=== PATIENT | male | born 2005 | race Caucasian/White ===

== ENCOUNTER 2024-01-23 14:50 | Inpatient (IN) ==
--- NOTE | 2024-01-23 15:18 | Emergency Department Note ---
Impression & Plan Compartment syndrome of left lower extremity ED Provider Note CHIEF COMPLAINT: Leg pain HISTORY OF PRESENT ILLNESS: This 18-year-old male patient presents to the emergency department via private vehicle with team physician for evaluation of possible compartment syndrome of the left lower extremity. 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 He reports swelling in the posterior aspect of the leg immediately which had worsening since that time. He was attempting RICE with no improvement. Today, noted the leg was cool in temperature with difficulty finding distal pulses. REVIEW OF SYSTEMS: A review of systems was performed with positives and pertinent negatives listed in the history of present illness. All other systems were reviewed and are negative. ALLERGIES: See below MEDICATIONS: See below PMH: See below PHYSICAL EXAM: VITALS: Vitals are noted on the nurse's note and reviewed by myself. Vital signs stable. GENERAL: 18-year-old male, in no acute distress, nondiaphoretic, well-developed well-nourished. SKIN: Slight edema of the left calf, no ecchymosis, or erythema. HEAD: Normocephalic atraumatic. MUSCULOSKELETAL: ROM left knee attempted, however, painful. Increase in circumference of LLE, calf compared to right. Sensation intact, DP pulse not able to be assessed. NEURO: Patient was alert and oriented to person place and time. No focal neurological deficits. MEDICAL DECISION MAKING: The patient is a pleasant 18-year-old male who arrives to the emergency department for evaluation of the above-stated complaint. The patient did arrive with the team physician, Dr. Cannon, who was concerned for compartment syndrome. The team physician evaluated the patient, and requested immediate ultrasound imaging to be obtained, venous and arterial. Doppler was attempted of the DP, which was unsuccessful. The patient was consented by Dr. Cannon and transferred to the OR prior to US imaging report for treatment of compartment syndrome. Please refer to Dr. Cannon's documentation for further patient workup and care. DIFFERENTIAL DIAGNOSIS: Fracture, subluxation, dislocation, contusion, ligamentous injury, neurovascular, compartment syndrome, rhabdomyolysis, as well as other pathologies. The chart was completed utilizing [employer] voice recognition software. Grammatical errors, random word insertions, pronoun errors, and incomplete sentences are an occasional consequence of this system due to software limitations, ambient noise, and hardware issues. Any formal questions or concerns about the content, text, or information contained within the body of this dictation should be directly addressed to the physician for clarification. Past Med/Surg History Problem List (Updated 01/31/24 @ 17:52 by AXEL Chapa) Wound of left leg Compartment syndrome of left lower extremity (Acute) Encounter for pre-operative examination No pertinent family history Left leg swelling Medical History No pertinent past medical history Surgical History Status post open reduction and internal fixation (ORIF) of fracture Left Tibial Plateau Family History Other No pertinent family history No pertinent past medical history Social History Smoking Status: Never smoker Hx Alcohol Use: No Hx Substance Use: No Preferred Language: Greek Communication Ability: Effective Enrollment Services Dean Required: No Beliefs That Will Affect Care: None Current Living Situation: Other Current Living Situation Comment: Off campus housing Feels Safe at Home: Yes Assistive Devices: None Allergies Allergies Allergy/AdvReac Type Severity Reaction Status Date / Time venom-honey bee Allergy Unknown Unknown Verified 01/28/24 12:30 Home Meds Previous Rx's Medication Instructions Recorded acetaminophen 500 mg tablet 1,000 mg (2 x 500 mg) PO Q8H PRN 01/28/24 (Tylenol Extra Strength) fever or pain #30 tabs ascorbic acid (vitamin C) 500 mg 500 mg PO BIDM 14 days #28 tabs 01/28/24 tablet (Vitamin C) cephalexin 500 mg capsule 500 mg PO TID #9 caps 01/28/24 ferrous gluconate 324 mg (38 mg 324 mg PO BIDM 14 days #28 tabs 01/28/24 iron) tablet multivitamin with folic acid 400 1 tab PO QAM #30 tabs 01/28/24 mcg tablet (Daily-Felipa (with folic acid)) tramadol 50 mg tablet 50 - 100 mg (1 - 2 x 50 mg) PO Q4H 01/28/24 PRN pain #18 tabs Results & Data (ED) Vital Signs Vital Signs - 24 hr 01/23/24 14:53 Temperature 36.9 C Temperature Source Temporal Artery Scan Pulse Rate 105 H Respiratory Rate 16 Respiratory Effort / Characteristics Non-Labored Spontaneous Respiratory Depth Normal Blood Pressure 138/74 Blood Pressure Mean 95 Blood Pressure Position Sitting Pulse Oximetry 99 Oxygen Delivery Method Room Air Sepsis Recent Fever Within 48 Hours No Sepsis New/Unexplained Change in Mental Status N/A Sepsis Action Taken by Nursing No Action Required Laboratory Data 01/24/24 06:32 01/24/24 06:32 Lab Results 01/23/24 Range/Units 16:40 WBC 10.64 (4.8-10.8) K/ul RBC 4.87 (4.70-6.10) M/uL Hgb 14.7 (14.0-18.0) g/dl Hct 42.5 (42.0-52.0) % MCV 87.3 (80.0-100.0) fL MCH 30.2 (25.0-34.0) pg MCHC 34.6 (32.0-36.0) g/dL RDW Std Deviation 40.1 (36.4-46.3) fL RDW Coeff of Mercedes 12.6 (11.5-14.5) % Plt Count 269 (130-400) K/uL MPV 9.6 (9.4-12.4) fL Immature Gran % (Auto) 0.3 % Neut % (Auto) 65.4 % Lymph % (Auto) 17.0 % [place] % (Auto) 13.3 % Eos % (Auto) 3.4 % Baso % (Auto) 0.6 % Neut # (Auto) 6.97 H (1.40-6.50) K/uL Lymph # (Auto) 1.81 (1.20-3.40) K/uL Independence # (Auto) 1.41 H (0.11-0.59) K/uL Eos # (Auto) 0.36 (0.00-0.50) K/uL Baso # (Auto) 0.06 (0.00-0.20) K/uL Immature Gran # (Auto) 0.03 (0.01-0.20) K/uL Sodium 138 (136-145) mmol/L Potassium 3.6 (3.5-5.1) mmol/L Chloride 103 (98-107) mmol/L Carbon Dioxide 30 (21-32) mmol/L Anion Gap 5 (3-11) BUN 16 (6-23) mg/dl Creatinine 0.86 (0.6-1.4) mg/dl Est Cr Clr Drug Dosing 124.7 ml/min eGFR 127.92 BUN/Creatinine Ratio 18.6 (10-20) Glucose 79 (70-99(Fasting)) mg/dl Calcium 9.4 (8.6-10.3) mg/dl Total Bilirubin 1.0 (0.2-1.0) mg/dl AST 21 (13-39) U/L ALT 19 (7-52) U/L Alkaline Phosphatase 111 H (34-104) U/L Total Creatine Kinase 230 H (30-223) U/L Myoglobin 24 L (28-72) ng/mL Total Protein 8.0 (6.0-8.3) gm/dl Albumin 4.9 (3.4-5.0) gm/dl Globulin 3.1 (2.5-4.0) gm/dl Albumin/Globulin Ratio 1.6 (0.9-2) Administered Medications Discontinued Medications Acetaminophen (Acetaminophen 500 Mg Tab) 1,000 mg PO Q8H PRN PRN Reason: Pain Stop: 02/22/24 20:01 Last Admin: 01/27/24 11:08 Dose: 1,000 mg Documented By: Admin: 01/27/24 00:20 Dose: 1,000 mg Documented By: Admin: 01/25/24 21:49 Dose: 1,000 mg Documented By: Admin: 01/25/24 10:50 Dose: 1,000 mg Documented By: Admin: 01/24/24 17:56 Dose: 1,000 mg Documented By: DANTE Ascorbic Acid (Ascorbic Acid 500 Mg Tab) 500 mg PO BIDM KENDRICK Stop: 02/06/24 07:59 Last Admin: 01/29/24 08:19 Dose: 500 mg Documented By: Admin: 01/28/24 18:03 Dose: 500 mg Documented By: [facility] Admin: 01/28/24 08:59 Dose: 500 mg Documented By: [facility] Admin: 01/27/24 17:54 Dose: 500 mg Documented By: [facility] Admin: 01/27/24 08:46 Dose: 500 mg Documented By: [facility] Admin: 01/26/24 17:39 Dose: 500 mg Documented By: MIGUEL ANGEL Admin: 01/26/24 13:57 Dose: 500 mg Documented By: Admin: 01/25/24 18:00 Dose: 500 mg Documented By: Admin: 01/25/24 07:58 Dose: 500 mg Documented By: Admin: 01/24/24 17:54 Dose: 500 mg Documented By: Admin: 01/24/24 08:28 Dose: 500 mg Documented By: DANTE Bupivacaine HCl (Bupivacaine 0.5 % 5 Mg/1 Ml Mpf 30ml Vial) Confirm Administered Dose 30 ml .ROUTE .STK-MED ONE Stop: 01/23/24 16:42 Last Admin: 01/23/24 17:45 Dose: 20 ml Documented By: SAMANTHA Bupivacaine HCl (Bupivacaine 0.5 % 5 Mg/1 Ml Mpf 30ml Vial) Confirm Administered Dose 30 ml .ROUTE .STK-MED ONE Stop: 01/26/24 08:37 Last Admin: 01/26/24 09:30 Dose: 16.5 ml Documented By: SAMANTHA Bupivacaine HCl/Epinephrine Bitart (Bupivacaine/Epinephrine 0.25% 1:200,000 30 Ml Vial) Confirm Administered Dose 30 ml .ROUTE .STK-MED ONE Stop: 01/28/24 13:53 Last Admin: 01/28/24 15:05 Dose: 9 ml Documented By: SAMANTHA Celecoxib (Celecoxib 100 Mg Cap) 100 mg PO BID [facility] Stop: 02/07/24 08:59 Last Admin: 01/29/24 08:19 Dose: 100 mg Documented By: Admin: 01/28/24 19:58 Dose: 100 mg Documented By: Admin: 01/28/24 08:59 Dose: 100 mg Documented By: Admin: 01/27/24 21:17 Dose: 100 mg Documented By: Admin: 01/27/24 08:45 Dose: 100 mg Documented By: MIGUEL ANGEL Admin: 01/26/24 20:07 Dose: 100 mg Documented By: Admin: 01/26/24 13:58 Dose: 100 mg Documented By: Admin: 01/25/24 19:55 Dose: 100 mg Documented By: Admin: 01/25/24 07:57 Dose: 100 mg Documented By: Admin: 01/24/24 20:53 Dose: 100 mg Documented By: Admin: 01/24/24 08:28 Dose: 100 mg Documented By: DANTE Docusate Sodium (Docusate Sodium 100 Mg Cap) 100 mg PO BID [facility] Stop: 02/22/24 20:59 Last Admin: 01/29/24 08:19 Dose: 100 mg Documented By: Admin: 01/28/24 19:58 Dose: 100 mg Documented By: Admin: 01/28/24 09:15 Dose: 100 mg Documented By: [facility] Admin: 01/27/24 21:17 Dose: 100 mg Documented By: Admin: 01/27/24 08:50 Dose: 100 mg Documented By: [facility] Admin: 01/26/24 20:07 Dose: Not Given Documented By: [facility] Admin: 01/26/24 13:59 Dose: 100 mg Documented By: [facility] Admin: 01/25/24 19:55 Dose: Not Given Documented By: [facility] Admin: 01/25/24 07:58 Dose: Not Given Documented By: Admin: 01/24/24 20:53 Dose: Not Given Documented By: [facility] Admin: 01/24/24 08:28 Dose: 100 mg Documented By: Admin: 01/23/24 22:20 Dose: 100 mg Documented By: COLIN Fentanyl Citrate (Fentanyl Citrate Pf 100 Mcg/2 Ml Vial) 25 mcg IV Q5M PRN PRN Reason: PACU Use Only-Pain Stop: 01/26/24 16:14 Last Admin: 01/26/24 11:10 Dose: 25 mcg Documented By: [facility] Ferrous Gluconate (Ferrous Gluconate 324 Mg Tab) 324 mg PO BIDM [facility] Stop: 02/06/24 07:59 Last Admin: 01/29/24 08:19 Dose: 324 mg Documented By: Admin: 01/28/24 18:03 Dose: 324 mg Documented By: [facility] Admin: 01/28/24 08:59 Dose: 324 mg Documented By: [facility] Admin: 01/27/24 17:55 Dose: 324 mg Documented By: [facility] Admin: 01/27/24 08:46 Dose: 324 mg Documented By: [facility] Admin: 01/26/24 17:39 Dose: 324 mg Documented By: [facility] Admin: 01/26/24 13:57 Dose: 324 mg Documented By: [facility] Admin: 01/25/24 18:00 Dose: 324 mg Documented By: Admin: 01/25/24 07:57 Dose: 324 mg Documented By: Admin: 01/24/24 17:54 Dose: 324 mg Documented By: Admin: 01/24/24 08:28 Dose: 324 mg Documented By: DANTE Sodium Chloride (Nss) 1,000 mls @ 999 mls/hr IV .Q1H1M ONE Stop: 01/23/24 16:57 Last Infusion: 01/23/24 22:06 Dose: Infused Documented By: Admin: 01/23/24 16:42 Dose: 999 mls/hr Documented By: PABLO Cefazolin Sodium (Ancef 2000mg) 2,000 mg in 15 mls @ 3.75 mls/min IV PREOP ONE; Protocol Stop: 01/23/24 15:55 Last Admin: 01/23/24 17:26 Dose: 3.75 mls/min Documented By: KEELY Cefazolin Sodium (Ancef 2000mg) 2,000 mg in 15 mls @ 3.75 mls/min IV Q8H KENDRICK; Protocol Stop: 01/25/24 10:03 Last Admin: 01/25/24 11:25 Dose: 3.75 mls/min Documented By: Admin: 01/25/24 01:44 Dose: 3.75 mls/min Documented By: Admin: 01/24/24 17:54 Dose: 3.75 mls/min Documented By: Admin: 01/24/24 10:53 Dose: 3.75 mls/min Documented By: Admin: 01/24/24 02:50 Dose: 3.75 mls/min Documented By: COLIN Tranexamic Acid (Tranexamic Acid / 0.7% Nacl) 1,000 mg in 100 mls @ 600 mls/hr IV NOW STA Stop: 01/24/24 12:10 Last Infusion: 01/24/24 13:28 Dose: Infused Documented By: Admin: 01/24/24 13:16 Dose: 600 mls/hr Documented By: DANTE Cefazolin Sodium (Ancef 2000mg) 2,000 mg in 15 mls @ 3.75 mls/min IV PREOP KENDRICK; Protocol Stop: 01/26/24 18:00 Last Admin: 01/26/24 08:54 Dose: 3.75 mls/min Documented By: YOGI Sodium Chloride (Nss) 1,000 mls @ 0 mls/hr IV .Q0M [facility] Stop: 01/27/24 08:14 Last Infusion: 01/26/24 14:32 Dose: Infused Documented By: Admin: 01/26/24 08:23 Dose: 15 mls/hr Documented By: TDM Cefazolin Sodium (Ancef 1000mg) 1,000 mg in 7.5 mls @ 3.75 mls/min IV Q8H [facility]; Protocol Stop: 01/28/24 16:59 Last Admin: 01/28/24 09:15 Dose: 3.75 mls/min Documented By: [facility] Admin: 01/28/24 00:53 Dose: 3.75 mls/min Documented By: Admin: 01/27/24 17:54 Dose: 3.75 mls/min Documented By: [facility] Admin: 01/27/24 08:51 Dose: 3.75 mls/min Documented By: [facility] Admin: 01/27/24 00:20 Dose: 3.75 mls/min Documented By: [facility] Admin: 01/26/24 17:39 Dose: 3.75 mls/min Documented By: [facility] Lidocaine HCl (Lidocaine 1% Local 20 Ml Vial) Confirm Administered Dose 20 ml .ROUTE .STK-MED ONE Stop: 01/28/24 13:54 Last Admin: 01/28/24 15:06 Dose: 9 ml Documented By: SAMANTHA Lidocaine/Epinephrine (Lidocaine 1%/Epinephrine 1:100,000 50 Ml Vial) Confirm Administered Dose 50 ml .ROUTE .STK-MED ONE Stop: 01/23/24 16:43 Last Admin: 01/23/24 17:45 Dose: 20 ml Documented By: SAMANTHA Lidocaine/Epinephrine (Lidocaine 1%/Epinephrine 1:100,000 50 Ml Vial) Confirm Administered Dose 20 ml .ROUTE .STK-MED ONE Stop: 01/26/24 08:37 Last Admin: 01/26/24 09:30 Dose: 16.5 ml Documented By: SAMANTHA Multivitamins (Multivitamin Tab) 1 tab PO QAM [facility] Stop: 02/23/24 08:59 Last Admin: 01/29/24 08:19 Dose: 1 tab Documented By: Admin: 01/28/24 08:59 Dose: 1 tab Documented By: MIGUEL ANGEL Admin: 01/27/24 08:45 Dose: 1 tab Documented By: MIGUEL ANGEL Admin: 01/26/24 13:58 Dose: 1 tab Documented By: MIGUEL ANGEL Admin: 01/25/24 07:57 Dose: 1 tab Documented By: Admin: 01/24/24 08:28 Dose: 1 tab Documented By: DANTE Sennosides (Senna 8.6 Mg Tab) 17.2 mg PO HS KENDRICK Stop: 02/22/24 20:59 Last Admin: 01/28/24 19:59 Dose: Not Given Documented By: Admin: 01/27/24 21:17 Dose: 17.2 mg Documented By: Admin: 01/26/24 20:07 Dose: Not Given Documented By: Admin: 01/25/24 19:55 Dose: Not Given Documented By: Admin: 01/24/24 20:53 Dose: Not Given Documented By: Admin: 01/23/24 22:19 Dose: 17.2 mg Documented By: COLIN Tramadol HCl (Tramadol Hcl 50 Mg Tablet) 50 - 100 mg PO Q4H PRN PRN Reason: Pain & Pre PT Stop: 02/22/24 19:53 Last Admin: 01/29/24 09:50 Dose: 50 mg Documented By: Admin: 01/27/24 14:20 Dose: 50 mg Documented By: Admin: 01/27/24 01:23 Dose: 50 mg Documented By: Admin: 01/26/24 14:47 Dose: 50 mg Documented By: MIGUEL ANGEL Admin: 01/24/24 08:28 Dose: 50 mg Documented By: Admin: 01/23/24 22:08 Dose: 50 mg Documented By: ROSEANN Discharge Plan Visit Data Chief Complaint: Leg Injury/Pain Stated Complaint: L LEG INJURY ED Provider: Reyes Jimenez ED Midlevel Provider: Laura Suarez Discharge Problem: Compartment syndrome of left lower extremity Patient Disposition: Admitted As Inpatient Condition: Good Discharge Instructions Interventions: ED Discharge Assessment Last Done: 01/23/24 16:50 Discharge Problem: Compartment syndrome of left lower extremity Qualifiers: Encounter type: initial encounter Qualified Code(s): T79.A22A - Traumatic compartment syndrome of left lower extremity, initial encounter
[2024-01-23] MEDS ORDERED: fentaNYL citrate PF 100 MCG/2 ML VIAL ONE ×3 (15:27→18:50)
[2024-01-23] MEDS ORDERED: MIDAZOLAM HCL 1 MG/ML 2ML VIAL ONE (15:27)
[2024-01-23] MEDS ORDERED: ROCURONIUM BROMIDE 10 MG/ML 5 ML VIAL IV ONE (15:41)
[2024-01-23] MEDS ORDERED: LIDOCAINE 2% 2 ML VIAL/AMP(20MG/ML) INFIL ONE (15:41)
[2024-01-23] MEDS ORDERED: PROPOFOL IV EMULSION 10 MG/ML 20 ML VIAL IV ONE (15:41)
[2024-01-23] MEDS ORDERED: SUCCINYLCHOLINE 100MG/5ML SYR IV ONE (15:41)
[2024-01-23] MEDS ORDERED: ONDANSETRON INJ 2 MG/ML 2 ML VIAL ONE (15:41)
[2024-01-23] MEDS ORDERED: DEXAMETHASONE SOD INJ 4 MG/ML VIAL ONE (15:41)
--- NOTE | 2024-01-23 15:47 | History & Physical Report ---
Date of Service January 23, 2024 Assessment & Plan (1) Left leg swelling: Plan: IMPRESSION: LLE swelling, firm, diminished pulses, concern for compartment syndrome PLAN: NPO TEDs & foot pumps RLE Obtaining vascular studies (Venous & Arterial) Discussed options of conservative vs surgical intervention with LLE 4 compartment release and wound vac placement as well as the risks and benefits of each. Informed consent signed. 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 He had swelling posteriorly immediately after. An ultrasound in the gym revealed a Soleus tear. Today he saw his ATC and had increased swelling and intermittent decreased sensation. Allergies Allergy/AdvReac Type Severity Reaction Status Date / Time venom-honey bee Allergy Unknown Unknown Verified 01/23/24 16:45 Home Medications Medication Instructions Recorded Confirmed Type Tylenol 650 mg PO Q6 PRN Pain 01/23/24 01/23/24 History Past Med/Surg History Problem List (Updated 01/23/24 @ 15:31 by David Cannon MD) Left leg swelling Surgical History (Updated 01/23/24 @ 15:34 by David Cannon MD) Status post open reduction and internal fixation (ORIF) of fracture Left Tibial Plateau Social History Smoking Status: Never smoker Preferred Language: Mosotho Feels Safe at Home: Yes Review of Systems Review of Systems: All systems reviewed & are unremarkable except as noted in HPI & below Physical Exam Physical Exam: LLE: Sensation to light touch intact distally. Able to wiggle toes and ankle up and down with minimal pain. Unable to palpate DP & PT pulses. Faint ultrasound PT pulse. BCR < 3 sec. Calf is firm, near ridged. Significant pain with ankle extension. Respiratory: normal respiratory effort, lungs clear to auscultation Cardiovascular: Rate/Rhythm: regular rate and regular rhythm Gastrointestinal (Abdomen): Soft, Normal bowel sounds Results & Data Results & Data Vital Signs (Past 12 Hours) Vital Signs Temp Pulse Resp BP Pulse Ox O2 Del Method 01/23/24 14:53 36.9 C 105 H 16 138/74 99 Room Air Code Status & VTE Plan VTE Prophylaxis Plan VTE Prophylaxis will be ordered: Yes
[2024-01-23] MEDS: SODIUM CHLORIDE 0.9% 1,000 ML IV ONE (16:42)
--- NOTE | 2024-01-23 16:42 | Ultrasound Report ---
EXAMINATION: Left lower extremity ultrasound lower CLINICAL HISTORY: Left lower extremity swelling after injury, possible compartment syndrome PRIORS: None TECHNIQUE: Ultrasound interrogation of the left lower extremity deep venous structures was performed with grayscale, color Doppler, compression and augmentation. FINDINGS: The left common femoral, superficial femoral, greater saphenous, popliteal and tibial veins demonstrate normal compressibility, frequency and augmentation. IMPRESSION: No sonographic evidence of deep venous thrombosis in the left lower extremity. Electronically signed by Chayito Lizarraga 01-23-2024 4:42 PM
--- NOTE | 2024-01-23 16:49 | Anesthesiology Consultation ---
Date of Service January 23, 2024 Assessment & Plan (1) Encounter for pre-operative examination: Chart Review Chart Review: Acceptable Risk for Surgery (urgent) History Surgery Operation Date: 01/23/24 16:00 Proposed Procedures p Left Lower Leg Compartment Syndrome Release - David Cannon MD Height/Weight Height: 5 ft 6 in Weight: 63.8 kg Allergies Allergy/AdvReac Type Severity Reaction Status Date / Time venom-honey bee Allergy Unknown Unknown Verified 01/23/24 16:45 Medications Home Medications Medication Instructions Recorded Confirmed Last Taken Tylenol 650 mg PO Q6 PRN Pain 01/23/24 01/23/24 Unknown Active Medications Generic Name Dose Route Start Last Admin Trade Name Freq PRN Reason Stop Dose Admin Sodium Chloride 1,000 mls @ 999 mls/hr 01/23/24 15:57 01/23/24 16:42 Nss IV 01/23/24 16:57 999 mls/hr .Q1H1M ONE Administration NPO Date Last Intake of Fluids: 01/23/24 Time Last Intake of Fluids: 12:00 Date Last Intake of Solids: 01/23/24 Time Last Intake of Solids: 12:00 Past Medical History Medical History (Updated 01/23/24 @ 16:49 by Michael Landeros MD) No pertinent past medical history Past Family History Family History (Updated 01/23/24 @ 16:48 by Michael Landeros MD) Other No pertinent family history No pertinent past medical history Past Surgical History Surgical History (Updated 01/23/24 @ 15:34 by David Cannon MD) Status post open reduction and internal fixation (ORIF) of fracture Left Tibial Plateau Social History Smoking Status: Never smoker Physical Exam Vital Signs Last Vital Signs Temp 36.9 C 01/23/24 14:53 Pulse 73 01/23/24 16:46 Resp 20 01/23/24 16:46 BP 133/63 01/23/24 16:46 Pulse Ox 100 01/23/24 16:46 O2 Del Method Room Air 01/23/24 14:53
[2024-01-23] MEDS ORDERED: KETOROLAC 30 MG/ML VIAL IV PRN (16:58)
[2024-01-23] MEDS ORDERED: ONDANSETRON INJ 2 MG/ML 2 ML VIAL IV PRN ×2 (16:58→19:54)
[2024-01-23] MEDS ORDERED: PROMETHAZINE HCL 6.25 MG in SODIUM CHLORIDE 0.9% 50 ML IV PRN (16:58)
[2024-01-23] MEDS ORDERED: HYDROmorphone INJ 1 MG/ML SYRINGE IV PRN (16:58)
[2024-01-23] MEDS ORDERED: ATROPINE SULFATE 0.1 MG/ML 10ML SYR IV PRN (16:58)
[2024-01-23 16:59] LABS: Basophils # (auto) 0.06 K/uL (0.00-0.20); Basophils % (auto) 0.6 %; Eosinophils # (auto) 0.36 K/uL (0.00-0.50); Eosinophils % (auto) 3.4 %; Hematocrit (blood only) 42.5 % (42.0-52.0); Hemoglobin 14.7 g/dl (14.0-18.0); Immature Granulocytes # (auto) 0.03 K/uL (0.01-0.20); Immature Granulocytes % (auto) 0.3 %; Lymphocytes # (auto) 1.81 K/uL (1.20-3.40); Mean Corpuscular Hemoglobin 30.2 pg (25.0-34.0); Mean Corpuscular Hgb Conc 34.6 g/dL (32.0-36.0); Mean Corpuscular Volume 87.3 fL (80.0-100.0); Mean Platelet Volume 9.6 fL (9.4-12.4); Monocytes # (auto) 1.41 K/uL (0.11-0.59); Monocytes % (auto) 13.3 %; Neutrophils # (auto) 6.97 K/uL (1.40-6.50); Neutrophils % (auto) 65.4 %; Platelet Count 269 K/uL (130-400); RDW Coefficient of Variation 12.6 % (11.5-14.5); RDW Standard Deviation 40.1 fL (36.4-46.3); Red Blood Count 4.87 M/uL (4.70-6.10); White Blood Count 10.64 K/ul (4.8-10.8)
[2024-01-23 17:14] LABS: Albumin Globulin Ratio 1.6 (0.9-2); Albumin Level 4.9 gm/dl (3.4-5.0); BUN Creatinine Ratio 18.6 (10-20); Calcium 9.4 mg/dl (8.6-10.3); Creatinine Clr Calc Pharmacy 124.7 ml/min; Globulin 3.1 gm/dl (2.5-4.0); Potassium 3.6 mmol/L (3.5-5.1)
[2024-01-23] MEDS ORDERED: ceFAZolin 330 MG/ML 1 GM VIAL ONE (17:24)
[2024-01-23] MEDS: ceFAZolin 2000MG 2,000 MG/15 ML SYR IV ONE (17:26)
[2024-01-23] MEDS: LIDOCAINE 1%/EPINEPHRINE 1:100,000 50 ML VIAL ONE (17:45)
[2024-01-23] MEDS: BUPIVACAINE 0.5 % 5 MG/1 ML MPF 30ML VIAL ONE (17:45)
--- NOTE | 2024-01-23 17:51 | Ultrasound Report ---
EXAM: US arterial duplex LE 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 Severe swelling, possible compartment syndrome. TECHNIQUE: Ultrasound examination of the left lower extremities arteries with ankle brachial indices was performed in real-time and duplex. One or more of the following were performed- spectral analysis, resistive index, waveform analysis, and pulsed Doppler. COMPARISON: None. FINDINGS: Vessel Flow Pattern Left Peak Velocity Left (cm/sec) Common Femoral Artery (CHINCHILLA FARMER) Tri 123.64/11.5 cm/sec. Deep Femoral Artery (DPA) Bi 108/13.7 cm/sec. Superficial Femoral Artery (SFA) Bi SFA proximal 154/17 cm/sec. biphasic SFA mid 163/20 cm/sec. biphasic SFA distal 163.5/22.3 cm/sec. biphasic Popliteal Artery (POP A) Bi proximal 149.8/17 cm/cycle. Biphasic mid 154.2/7.1 cm/sec. biphasic distal 202/35.5 cm/sec. biphasic Posterior Tibial Artery (INSURANCE CLAIMS ASSISTANT Bi proximal 102/4 cm/sec. biphasic mid 129.5/7.6 cm/sec. biphasic Distal 50.7/0.0 cm/sec. biphasic Anterior Tibial Artery (JEANMARIE), Bi proximal 69.6/0.0. Biphasic mid 51.7/9.6 biphasic distal 52/0.0 cm/sec. biphasic Dorsalis Pedis Artery (DPA) Bi 21.6/0.0 Peroneal Artery Bi proximal 70.8/0.0 biphasic mid 58.6/7.3 biphasic distal 72.8/4 biphasic The medial aspect of the calf muscle related to the possible medial head of the gastrocnemius muscle shows an intramuscular echogenic area surrounded with edema that could be traced to around the INSURANCE CLAIMS ASSISTANT; it may represent intramuscular hematoma. There is increased velocity at the distal popliteal artery/ proximal tibial artery that may indicate possible significant stenosis. Although there is no intraluminal filling defect, atheromatous plaque or intimal thickening. Collateral Circulation: No significant collateral circulation was noted indicative of chronic arterial occlusion. IMPRESSION: Duplex ultrasound of the left lower extremity arteries: 1. The left lower leg examined arteries starting from the superficial femoral artery down to the peroneal artery show biphasic waveform. 2. Spiking and peaking at the distal popliteal artery /the proximal posterior tibial artery indicating extraluminal stenosis, the possibility of compartmental syndrome should be considered. Clinical correlation and further evaluation with MRI are suggested. 3. Possible intramuscular hematoma and edema in the proximal part of the medial aspect of the calf muscle. 4. No arterial occlusion with biphasic flow at the DPA. [facility]'s ER was called at [phone] at 04:46 PM [employer], and Crystal, the Nurse was informed regarding the presence of Significant Medical Findings in the report. Electronically signed by Lopez Yuan 01-23-2024 5:50 PM
[2024-01-23] MEDS ORDERED: KETOROLAC 30 MG/ML VIAL ONE (18:55)
[2024-01-23] MEDS ORDERED: GLYCOPYRROLATE 0.2 MG/ML VIAL ONE (18:57)
[2024-01-23] MEDS ORDERED: NEOSTIGMINE METHYLSULFATE 1 MG/ML 10ML VIAL ONE (18:57)
--- NOTE | 2024-01-23 19:17 | Post Operative Brief Note ---
Immediate Post Op Note Date of Surgery January 23, 2024 Pre & Post Diagnosis Operation Date: 01/23/24 16:00 Pre-Op Diagnosis: Acute compartment syndrome left leg Post-Op Diagnosis: Acute compartment syndrome left leg I identified the patient and participated in the time-out.: Yes Procedure Operation Date: 01/23/24 16:00 Actual Procedures p Left Lower Leg 4 Compartment release, wound vac placement(Left) - David Cannon MD Surgeon David Cannon MD Assistant Cross Country Coach n/a Estimated Blood Loss 25 Findings Consistent with Post-Op Diagnosis Fluids 1000 cc Specimens LLE muscle Drains Other (Wound Vac)
--- NOTE | 2024-01-23 19:19 | Operative Report ---
Post Operative Report Pre & Post Diagnosis Operation Date: 01/23/24 16:00 Pre-Op Diagnosis: Acute compartment syndrome left leg Post-Op Diagnosis: Acute compartment syndrome left leg I identified the patient and participated in the time-out.: Yes Procedure Operation Date: 01/23/24 16:00 Actual Procedures p Left Lower Leg 4 Compartment release, wound vac placement(Left) - David Cannon MD Surgeon David Cannon MD Button Spindler n/a Estimated Blood Loss 25 Findings See Below Anterior & Lateral compartments: The muscles herniated through as they were released. The muscles were red, beefy, and contractile. Wound was 30 x 8 cm Superficial Posterior Compartment: The muscles herniated through as they were released. The muscles were red, beefy, and contractile after release. There was hematoma between the medial gastroc and Soleus. There was some bruising of the distal medial gastroc. Proximally and anterior portion of the gastroc was concerning muscle tissue which was blackened with surrounding inflammed bursal tissue. The Soleus bridge was still attached. Deep Posterior Compartment:The muscles herniated through as they were released. The muscles were red, beefy, and contractile. Medial wound was 28 x 8 cm. Strong Dopplerable pulses from the DP & PT arteries were observed after the releases. Fluids 1000 cc Specimens LLE Muscle Drains Wound Vac LLE Anesthesia Type General Complications none Indications The patient is a 18 year old male who has developed acute LLE compartment syndrome after sustaining a hyperextension injury the day before. After a lengthy discussion regarding treatment options as well as the risks and benefits of both conservative versus surgical intervention, I recommended surgical intervention in order to preserve the function of his leg. The patient understands the risks of surgery, which include but are not limited to: bleeding, infection, re-operation, damage to nerves and arteries, continued pain, decreased level of activity, muscle herniation, and DVT. The patient understands all of these instructions and explanations, all of their questions have been satisfactorily addressed. The patient has elected to proceed with surgery and the informed consent was signed. Description of Procedure The patient was taken to the Operating Room and after general anesthetic was administered a multidisciplinary time-out was performed identifying my initials on the left lower limb as the correct and operative limb, the patient was placed in the supine position on the operating table. Prior to the incision being made, 2 grams of intravenous Ancef was given. The left lower leg was prepped and draped in the standard sterile fashion. The tibial crest, Tibial Tubercle, ankle joint line, and proximal & distal fibula were palpated and marked. The planned incision over the anterior and lateral compartments was approximately 30 cm in length was marked midway between the tibial crest and fibula. The posterior deep and superficial compartments single incision technique was planned and a 28 cm incision, 2 cm posterior to the medial tibial crest was marked. The incisions were injected with a 50:50 mixture of 1% Lidocaine plain and 0.5% Marcaine with Epinephrine for a total of 27 cc. The planned incision was created exposing the anterior and lateral compartment fascia. The fascia was incised longitudinally to expose the intermuscular septum. The subcutaneous tissue was bluntly dissected with Metzenbaum scissors both in the proximal and distal direction as well as sub-fascially prior to incising the fascia. The superficial peroneal nerve was released as it exited the intramuscular septum and protected throughout. The anterior compartment was performed first with proximal fasciotomy directed toward the patella and distally away from the superficial peroneal nerve and toward the central aspect of the ankle. The lateral compartment was performed proximally directing towards the fibular head and distally toward the posterior distal fibula. The muscles herniated through as they were released. The muscles were red, beefy, and contractile. The wound vac placed with white foam over the tendons and exposed superficial peroneal nerve and covered with black foam. The sponge and needle counts were correct. The planned medial incision was created and carried down to the fascia. The saphenous vein and nerve were protected throughout. The subcutaneous tissue was bluntly dissected with Metzenbaum scissors both in the proximal and distal direction sub-fascially prior to incising the fascia. The superficial posterior compartment was decompressed first from the anterior inferior to slightly more posterior superior. Then it was carried distally toward the medial malleolus. The posterior tibial tendon was identified and its compartment released distally and detaching the soleus bridge proximal off the tibia. There was good hemostasis. The wounds were copiously irrigated throughout. The muscles were red, beefy, and contractile after release. The wound vac placed with white foam over the tendons and covered with black foam. The sponge and needle counts were correct. Using Adaptic and black foam connecting the 2 wounds in the standard fashion, the wound vac was functional. Post-op Instructions: Patient was admitted to the med/surg floor. Will consult Wound care nurse for change. WBAT, Activities as tolerated. Pain medicine. DVT prophylaxis with TEDs & Foot pumps. I attest to the content of the Intraoperative Record and any orders documented therein. Any exceptions are noted below.
[2024-01-23] MEDS ORDERED: NALOXONE HCL 0.4 MG/1 ML VIAL/CARP IV PRN (19:54)
[2024-01-23] MEDS ORDERED: MAGNESIUM HYDROXIDE SUSP 30 ML UDC PO PRN (19:54)
[2024-01-23] MEDS ORDERED: bisacodyL 10 MG SUPP PR PRN (19:54)
[2024-01-23] MEDS ORDERED: METOCLOPRAMIDE HCL INJ 5 MG/ML 2 ML VIAL IV PRN (19:54)
--- NOTE | 2024-01-23 20:01 | Anesthesiology Progress Note ---
Date of Service January 23, 2024 Anesthesia Post Procedure Vital Signs Vital Signs: Temp Pulse Pulse Pulse Resp BP BP 01/23/24 19:55 56 L 14 116/60 01/23/24 19:45 55 L 12 117/77 01/23/24 19:35 52 L 12 119/59 L 01/23/24 19:25 97.5 F L 57 L 12 123/62 01/23/24 16:50 01/23/24 16:46 73 20 133/63 01/23/24 14:53 98.4 F 105 H 16 138/74 Pulse Ox O2 Del Method O2 Flow Rate 01/23/24 19:55 97 Room Air 01/23/24 19:45 100 Oxymask 4 01/23/24 19:35 100 Oxymask 8 01/23/24 19:25 100 Oxymask 8 01/23/24 16:50 Room Air 01/23/24 16:46 100 01/23/24 14:53 99 Room Air Pain Intensity Left Lower Leg: Pain Intensity: 3 Transfer of Care Handoff Completed per policy Notes Mental Status: alert / awake / arousable and participated in evaluation Patient Amnestic to Procedure: Yes Nausea / Vomiting: adequately controlled Pain: adequately controlled Airway Patency, RR, SpO2: stable & adequate BP & HR: stable & adequate Hydration State: stable & adequate Anesthetic Complications: no major complications apparent and Pt Satisfied with anesthetic care
[2024-01-23] MEDS ORDERED: MoRPHine SULFATE 2 MG/ML CARP IV PRN (20:02)
[2024-01-23] MEDS: traMADol HCL 50 MG TABLET PO PRN (22:08)
[2024-01-23] MEDS: SENNA 8.6 MG TAB PO SCH (22:19)
[2024-01-23] MEDS: DOCUSATE SODIUM 100 MG CAP PO SCH (22:20)
[2024-01-24 00:56] LABS: Appearance Urine Cloudy (Clear); Bacteria Urine Automated None Seen (None Seen); Bilirubin Urine Negative (Negative); Blood Urine Negative (Negative); Cast Urine Automated 0-2 /lpf (0-2); Color Urine Yellow; Epithelial Cell Urine Auto 0-2 /hpf (0-2); Glucose Urine UA Negative (Negative); Ketones Urine Negative (Negative); Leukocyte Esterase Urine Negative (Negative); Nitrite Urine Negative (Negative); Protein Urine Negative (Negative); RBC Urine Automated 0-2 /hpf (0-2); Specific Gravity Urine 1.024 (1.000-1.030); Urobilinogen Urine Negative (Negative); WBC Urine Automated 0-5 /hpf (0-5)
[2024-01-24] MEDS: ceFAZolin 2000MG 2,000 MG/15 ML SYR IV SCH (02:50)
[2024-01-24 06:49] LABS: Hematocrit (blood only) 31.7 % (42.0-52.0); Hemoglobin 10.8 g/dl (14.0-18.0); Mean Corpuscular Hemoglobin 30.3 pg (25.0-34.0); Mean Corpuscular Hgb Conc 34.1 g/dL (32.0-36.0); Mean Platelet Volume 9.9 fL (9.4-12.4); Platelet Count 221 K/uL (130-400); RDW Coefficient of Variation 12.9 % (11.5-14.5); RDW Standard Deviation 41.9 fL (36.4-46.3); Red Blood Count 3.56 M/uL (4.70-6.10); White Blood Count 11.66 K/ul (4.8-10.8)
[2024-01-24 07:28] LABS: BUN Creatinine Ratio 15.9 (10-20); Calcium 8.7 mg/dl (8.6-10.3); Creatinine Clr Calc Pharmacy 130.8 ml/min; Potassium 4.1 mmol/L (3.5-5.1)
[2024-01-24] MEDS: FERROUS GLUCONATE 324 MG TAB PO SCH (08:28)
[2024-01-24] MEDS: MULTIVITAMIN TAB PO SCH (08:28)
[2024-01-24] MEDS: ASCORBIC ACID 500 MG TAB PO SCH (08:28)
[2024-01-24] MEDS: CELECOXIB 100 MG CAP PO SCH (08:28)
--- NOTE | 2024-01-24 13:01 | Orthopedic Progress Note ---
Date of Service January 24, 2024 Assessment & Plan (1) Compartment syndrome of left lower extremity: Plan: POD #1 s/p 4 compartment fasciotomy release left lower extremity with Dr Cannon 01/22 Patient is able to be weight bearing as tolerated Continue with pain control Wound Vac LLE changed today 01/23 with WCN, plan to change Wednesday Plastics consulted Dr Wallace for possible skin graft Elevated Ice to posterior calf Continue with neurovascular checks x4h Fe Vit C Admission and Anticipated Discharge Date Admission Date: January 23, 2024 Supervising Physician Co-Signing Physician Notes I, Dr. Cannon, saw and examined the patient. I discussed the management with my PA. I reviewed my PAs note and agree with the documented findings and attest to completing the substantive portion (medical decision making)/ plan of care I developed. Subjective Pt seen and examined bedside. He reports he is doing well and his sensation is better. Pain is better. Physical Exam Physical Exam: He is able to wiggle his toes and pump his ankle. Sensation in tact distally to light touch. DP and PT pulses dopplerable. Wound vac was in place and changed today. Bloody drainage. Muscle beefy red and viable. Lateral wound measured 29.5 x 8 cm Medial wound measured 27.5 x 8 cm Results & Data Vital Signs (Past 12 Hours) Vital Signs Temp Pulse Resp BP BP Pulse Ox O2 Del Method 01/24/24 08:14 37.1 C 50 L 16 104/58 L 100 Room Air 01/24/24 05:31 36.4 C L 54 L 16 98/59 L 99 Room Air 01/24/24 02:54 36.5 C 51 L 16 98/51 L 99 Room Air Laboratory Results 01/24/24 01/24/24 01/23/24 Range/Units 06:32 00:44 16:40 WBC 11.66 H 10.64 (4.8-10.8) K/ul RBC 3.56 L 4.87 (4.70-6.10) M/uL Hgb 10.8 L D 14.7 (14.0-18.0) g/dl Hct 31.7 L 42.5 (42.0-52.0) % MCV 89.0 87.3 (80.0-100.0) fL MCH 30.3 30.2 (25.0-34.0) pg MCHC 34.1 34.6 (32.0-36.0) g/dL RDW Std Deviation 41.9 40.1 (36.4-46.3) fL RDW Coeff of Mercedes 12.9 12.6 (11.5-14.5) % Plt Count 221 269 (130-400) K/uL MPV 9.9 9.6 (9.4-12.4) fL Immature Gran % (Auto) 0.3 % Neut % (Auto) 65.4 % Lymph % (Auto) 17.0 % [place] % (Auto) 13.3 % Eos % (Auto) 3.4 % Baso % (Auto) 0.6 % Neut # (Auto) 6.97 H (1.40-6.50) K/uL Lymph # (Auto) 1.81 (1.20-3.40) K/uL [place] # (Auto) 1.41 H (0.11-0.59) K/uL Eos # (Auto) 0.36 (0.00-0.50) K/uL Baso # (Auto) 0.06 (0.00-0.20) K/uL Immature Gran # (Auto) 0.03 (0.01-0.20) K/uL Sodium 138 138 (136-145) mmol/L Potassium 4.1 3.6 (3.5-5.1) mmol/L Chloride 105 103 (98-107) mmol/L Carbon Dioxide 28 30 (21-32) mmol/L Anion Gap 5 5 (3-11) BUN 13 16 (6-23) mg/dl Creatinine 0.82 0.86 (0.6-1.4) mg/dl Est Cr Clr Drug Dosing 130.8 124.7 ml/min eGFR 129.77 127.92 BUN/Creatinine Ratio 15.9 18.6 (10-20) Glucose 120 H 79 (70-99(Fasting)) mg/dl Calcium 8.7 9.4 (8.6-10.3) mg/dl Total Bilirubin 1.0 (0.2-1.0) mg/dl AST 21 (13-39) U/L ALT 19 (7-52) U/L Alkaline Phosphatase 111 H (34-104) U/L Total Creatine Kinase 230 H (30-223) U/L Myoglobin Pending Total Protein 8.0 (6.0-8.3) gm/dl Albumin 4.9 (3.4-5.0) gm/dl Globulin 3.1 (2.5-4.0) gm/dl Albumin/Globulin Ratio 1.6 (0.9-2) Urine Color Yellow Urine Appearance Cloudy A (Clear) Urine pH 7.0 (4.5-7.5) Ur Specific [place] 1.024 (1.000-1.030) Urine Protein Negative (Negative) Urine Glucose (UA) Negative (Negative) Urine Ketones Negative (Negative) Urine Blood Negative (Negative) Urine Nitrite Negative (Negative) Urine Bilirubin Negative (Negative) Urine Urobilinogen Negative (Negative) Ur Leukocyte Esterase Negative (Negative) Urine WBC (Auto) 0-5 (0-5) /hpf Urine RBC (Auto) 0-2 (0-2) /hpf U Hyaline Cast (Auto) 0-2 (0-2) /lpf U Epithel Cells (Auto) 0-2 (0-2) /hpf Urine Bacteria (Auto) None Seen (None Seen)
[2024-01-24] MEDS: TRANEXAMIC ACID / 0.7% NACL 1,000 MG/100 ML BAG IV STA (13:16)
[2024-01-24] MEDS: ACETAMINOPHEN 500 MG TAB PO PRN (17:56)
--- NOTE | 2024-01-25 10:26 | Orthopedic Progress Note ---
Date of Service January 25, 2024 Assessment & Plan (1) Compartment syndrome of left lower extremity: Plan: The patient was educated regarding today's findings. Conservative care measures were discussed. His wound VAC is functioning well. He states it is much less drainage than yesterday. His pain is well-controlled. Continue his current course of rest and healing. Return to the OR for wound closure is anticipated. This may occur tomorrow. I anticipate he will be seen by Dr. Cannon later today for further discussion. He may dangle his leg for short periods of time for change of position, but otherwise should keep the leg elevated. Will reassess in the morning. Admission and Anticipated Discharge Date Admission Date: January 23, 2024 Subjective This 18-year-old male is seen today in his room. He is 2 days status post left lower leg emergent fasciotomy with 4 compartment release. His mother is in the room this morning. He states he is doing well. He has little pain. He has not used any pain medication since yesterday. His mother states he slept through the night. His only complaint is the wound VAC and how it squeezes his calf. States his sensation is much better. No other complaints. Physical Exam Physical Exam: General: Well-developed, well-nourished, young male, in no acute distress. Laying in bed. Alert and oriented. Skin: Warm and dry with good turgor. No rashes. Abdulkadir wrap is in place on the left lower leg with his wound VAC. There is no swelling to his foot. Wound VAC is functioning with output of 100 cc of bloody discharge at this time. Musculoskeletal: The patient has intact motor function of his hip, knee, ankle, and toes. He is able to perform straight leg raise. He has intact plantarflexion and dorsiflexion of the foot. Dorsiflexion increases his calf and Achilles discomfort. Motor function of the toes is intact and unremarkable. Neurologic: Gross sensation is intact across the foot and toes by soft touch. Peripheral pulses are 2+ for PT and 1+ for DP. Capillary refill is equal for the skin of the foot. Results & Data Vital Signs (Past 12 Hours) Vital Signs Temp Pulse Resp BP Pulse Ox O2 Del Method 01/25/24 08:00 Room Air 01/25/24 07:10 36.6 C 56 L 15 99/62 L 99 Room Air
--- NOTE | 2024-01-25 11:24 | Surgery Consultation ---
Date of Consultation January 25, 2024 Assessment & Plan (1) Compartment syndrome of left lower extremity: Karel is 2 days s/p Left Lower Leg 4 Compartment release, wound vac placement. Wound vac is functioning well. He is overall doing well. Mother at bedside. Our service was consulted for discussion/evaluation of possible skin graft/skin flap. Per most recent Ortho progress note, considering possible wound closure in OR tomorrow. Will await final decision. Dr. Wallace to see patient later today/tomorrow AM. 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 He presented to [facility] ED for evaluation. When Karel was evaluated by Dr. Cannon, there was concern for compartment syndrome. Patient underwent Left Lower Leg 4 Compartment release, wound vac placement on 01/22. Today, Karel reports that he is doing well. His pain is under control. His mother is at his bedside. Allergies Allergy/AdvReac Type Severity Reaction Status Date / Time venom-honey bee Allergy Unknown Unknown Verified 01/23/24 16:45 Home Medications Medication Instructions Recorded Confirmed Type Tylenol 650 mg PO Q6 PRN Pain 01/23/24 01/23/24 History Patient History Medical History (Updated 01/24/24 @ 12:56 by Taylor Meehan PA-C) No pertinent past medical history Surgical History (Updated 01/23/24 @ 15:34 by David Cannon MD) Status post open reduction and internal fixation (ORIF) of fracture Left Tibial Plateau Family History (Updated 01/23/24 @ 16:48 by Michael Landeros MD) Other No pertinent family history No pertinent past medical history Social History Smoking Status: Never smoker Hx Alcohol Use: No Hx Substance Use: No Preferred Language: Burmese Communication Ability: Effective Scheduling Specialist Required: No Beliefs That Will Affect Care: None Current Living Situation: Other Current Living Situation Comment: Off campus housing Other Information That Helps Us Care for You: No Feels Safe at Home: Yes Safety Concerns: Feels Safe At This Time Assistive Devices: None Review of Systems Constitutional: as per Subjective / HPI; no fever and no chills Integumentary: as per Subjective / HPI Physical Exam Physical Exam: Wound vac in place on left lower extremity. Constitutional: WD/WN, vitals as above Respiratory: normal respiratory effort; no respiratory distress and no labored breathing Psychiatric: A+Ox3, euthymic affect Results & Data Vital Signs (Past 12 Hours) Vital Signs Temp Pulse Resp BP Pulse Ox O2 Del Method 01/25/24 08:00 Room Air 01/25/24 07:10 36.6 C 56 L 15 99/62 L 99 Room Air PG Care Time/CCT Total # of Minutes Spent Total Time Spent with Patient: Total time spent is greater than 50% in coordination of care (as documented) at patient's floor/unit and/or counseling patient: Coding Level of Care Code 99195 IN/OBS CONSULT LVL 3,45M Diagnoses Compartment syndrome of left lower extremity T79.A22A
[2024-01-26] MEDS ORDERED: ONDANSETRON INJ 2 MG/ML 2 ML VIAL ONE (07:57)
[2024-01-26] MEDS ORDERED: PROPOFOL IV EMULSION 10 MG/ML 20 ML VIAL IV ONE ×4 (07:57→09:10)
[2024-01-26] MEDS ORDERED: LIDOCAINE 2% 2 ML VIAL/AMP(20MG/ML) INFIL ONE (07:57)
[2024-01-26] MEDS ORDERED: fentaNYL citrate PF 100 MCG/2 ML VIAL ONE (07:57)
[2024-01-26] MEDS ORDERED: MIDAZOLAM HCL 1 MG/ML 2ML VIAL ONE ×2 (07:57→09:00)
--- NOTE | 2024-01-26 08:00 | Orthopedic Progress Note ---
Date of Service January 26, 2024 Assessment & Plan (1) Compartment syndrome of left lower extremity: Plan: POD #3 s/p LLE 4 compartment release and wound vac placement for acute compartment syndrome. NPO since MN Plan return to OR for Wound vac removal, I&D, attempted wound closure and replacement of wound vac. Risks & Benefits discussed. Patient agrees to proceed with surgery Informed Consent signed. Questions from patient and mother answered. Admission and Anticipated Discharge Date Admission Date: January 23, 2024 Subjective A little nervous for surgery, overall feeling better. Physical Exam Physical Exam: He is able to wiggle his toes and pump his ankle. Sensation intact distally to light touch. BCR < 2 sec. Wound vac was in place and functioning. Dark Bloody drainage. Lateral wound measured 29.5 x 8 cm Medial wound measured 27.5 x 8 cm Results & Data Vital Signs (Past 12 Hours) Vital Signs Temp Pulse Resp BP BP Pulse Ox O2 Del Method 01/26/24 07:11 36.5 C 53 L 15 111/67 99 Room Air 01/25/24 22:38 37.1 C 72 16 111/68 98 Room Air Laboratory Results 01/23/24 Range/Units 16:40 Myoglobin 24 L (28-72) ng/mL
[2024-01-26] MEDS ORDERED: PROMETHAZINE HCL 6.25 MG in SODIUM CHLORIDE 0.9% 50 ML IV PRN (08:14)
[2024-01-26] MEDS ORDERED: HYDROmorphone INJ 1 MG/ML SYRINGE IV PRN (08:14)
[2024-01-26] MEDS ORDERED: ATROPINE SULFATE 0.1 MG/ML 10ML SYR IV PRN (08:14)
[2024-01-26] MEDS ORDERED: ONDANSETRON INJ 2 MG/ML 2 ML VIAL IV PRN (08:14)
[2024-01-26] MEDS ORDERED: ePHEDrine sulfate 50 MG/ML AMP IV PRN (08:14)
--- NOTE | 2024-01-26 08:16 | Anesthesiology Consultation ---
Date of Service January 26, 2024 Assessment & Plan (1) Encounter for pre-operative examination: Chart Review Chart Review: Acceptable Risk for Surgery and Patient NOT seen in Pre Admission Testing Consults Requested none History Surgery Operation Date: 01/23/24 16:00 Proposed Procedures p Left Lower Leg Compartment Syndrome Release - David Frank Cannon MD Operation Date: 01/26/24 08:30 Proposed Procedures p Left Lower Extremity Incision and Drainage, Wound Closure, Possible Wound Vac - David Frank Cannon MD Height/Weight Height: 5 ft 6 in Weight: 66.9 kg Allergies Allergy/AdvReac Type Severity Reaction Status Date / Time venom-honey bee Allergy Unknown Unknown Verified 01/23/24 16:45 Medications Home Medications Medication Instructions Recorded Confirmed Last Taken Tylenol 650 mg PO Q6 PRN Pain 01/23/24 01/23/24 Unknown Active Medications Generic Name Dose Route Start Last Admin Trade Name Freq PRN Reason Stop Dose Admin Acetaminophen 1,000 mg 01/23/24 20:02 01/25/24 21:49 Acetaminophen 500 Mg Tab PO 02/22/24 20:01 1,000 mg Q8H PRN Administration Pain Ascorbic Acid 500 mg 01/24/24 08:00 01/25/24 18:00 Ascorbic Acid 500 Mg Tab PO 02/06/24 07:59 500 mg BIDM KENDRICK Administration Celecoxib 100 mg 01/24/24 09:00 01/25/24 19:55 Celecoxib 100 Mg Cap PO 02/07/24 08:59 100 mg BID KENDRICK Administration Docusate Sodium 100 mg 01/23/24 21:00 01/25/24 19:55 Docusate Sodium 100 Mg Cap PO 02/22/24 20:59 Not Given BID KENDRICK Ferrous Gluconate 324 mg 01/24/24 08:00 01/25/24 18:00 Ferrous Gluconate 324 Mg Tab PO 02/06/24 07:59 324 mg BIDM KENDRICK Administration Multivitamins 1 tab 01/24/24 09:00 01/25/24 07:57 Multivitamin Tab PO 02/23/24 08:59 1 tab QAM KENDRICK Administration Sennosides 17.2 mg 01/23/24 21:00 01/25/24 19:55 Senna 8.6 Mg Tab PO 02/22/24 20:59 Not Given HS KENDRICK Tramadol HCl 50 - 100 mg 01/23/24 19:54 01/24/24 08:28 Tramadol Hcl 50 Mg Tablet PO 02/22/24 19:53 50 mg Q4H PRN Administration Pain & Pre PT NPO Date Last Intake of Fluids: 01/25/24 Time Last Intake of Fluids: 21:00 Last Intake of Fluids Comment: cup of hot chocolate Date Last Intake of Solids: 01/25/24 Time Last Intake of Solids: 20:00 Last Intake of Solids Comment: breakfast burrito, chocolate pancake Past Medical History Medical History No pertinent past medical history Exercise / Class Metabolic Activity 1 > 8 Run/Swim/Ski/Tennis Past Family History Family History Other No pertinent family history No pertinent past medical history Past Surgical History Surgical History Status post open reduction and internal fixation (ORIF) of fracture Left Tibial Plateau Past Anesthesia History No Hx of Anesthesia Complications and No Family Hx of Anesthesia Complications History of PONV No Hx of PONV and No Hx of Motion Sickness Social History Smoking Status: Never smoker Hx Alcohol Use: No Hx Substance Use: No Physical Exam Vital Signs Last Vital Signs Temp 37.1 C 01/26/24 07:50 Pulse 78 01/26/24 07:50 Resp 20 01/26/24 07:50 BP 133/69 01/26/24 07:50 Pulse Ox 97 01/26/24 07:50 O2 Del Method Room Air 01/26/24 07:50 O2 Flow Rate 4 01/23/24 19:45 Testing Laboratory Results 01/24/24 06:32 01/24/24 06:32 Urine Color Yellow 01/24/24 00:44 Urine Appearance Cloudy (Clear) A 01/24/24 00:44 Urine pH 7.0 (4.5-7.5) 01/24/24 00:44 Ur Specific [place] 1.024 (1.000-1.030) 01/24/24 00:44 Urine Protein Negative (Negative) 01/24/24 00:44 Urine Glucose (UA) Negative (Negative) 01/24/24 00:44 Urine Ketones Negative (Negative) 01/24/24 00:44 Urine Nitrite Negative (Negative) 01/24/24 00:44 Ur Leukocyte Esterase Negative (Negative) 01/24/24 00:44 Urine WBC (Auto) 0-5 /hpf (0-5) 01/24/24 00:44 Urine RBC (Auto) 0-2 /hpf (0-2) 01/24/24 00:44 U Hyaline Cast (Auto) 0-2 /lpf (0-2) 01/24/24 00:44 U Epithel Cells (Auto) 0-2 /hpf (0-2) 01/24/24 00:44 Urine Bacteria (Auto) None Seen (None Seen) 01/24/24 00:44
[2024-01-26] MEDS: SODIUM CHLORIDE 0.9% 1,000 ML IV SCH (08:23)
[2024-01-26] MEDS ORDERED: ROCURONIUM BROMIDE 10 MG/ML 5 ML VIAL IV ONE (08:26)
[2024-01-26] MEDS: ceFAZolin 2000MG 2,000 MG/15 ML SYR IV SCH (08:54)
[2024-01-26] MEDS ORDERED: KETAMINE HCL 10MG/ML SYR ONE (09:00)
[2024-01-26] MEDS: BUPIVACAINE 0.5 % 5 MG/1 ML MPF 30ML VIAL ONE (09:30)
[2024-01-26] MEDS: LIDOCAINE 1%/EPINEPHRINE 1:100,000 50 ML VIAL ONE (09:30)
[2024-01-26] MEDS ORDERED: DEXAMETHASONE SOD INJ 4 MG/ML VIAL ONE (09:57)
[2024-01-26] MEDS ORDERED: HYDROmorphone INJ 2 MG/ML SYR/VIAL ONE (10:00)
--- NOTE | 2024-01-26 10:41 | Post Operative Brief Note ---
Immediate Post Op Note Date of Surgery January 26, 2024 Pre & Post Diagnosis Operation Date: 01/26/24 08:30 Pre-Op Diagnosis: Compartment syndrome of left lower extremity Post-Op Diagnosis: Compartment syndrome of left lower extremity I identified the patient and participated in the time-out.: Yes Procedure Operation Date: 01/26/24 08:30 Actual Procedures p Left Lower Extremity Incision and Drainage, Wound Closure, placement of Wound Vac(Left) - David Cannon MD Surgeon David Cannon MD Political Geographer n/a Estimated Blood Loss 5 Findings Consistent with Post-Op Diagnosis Fluids 700 cc Drains Other (Wound Vac) Anesthesia Type General Complications none
--- NOTE | 2024-01-26 10:42 | Operative Report ---
Post Operative Report Pre & Post Diagnosis Operation Date: 01/26/24 08:30 Pre-Op Diagnosis: H/O Compartment syndrome of left lower extremity, s/p 4 compartment releases, open wounds Post-Op Diagnosis: H/O Compartment syndrome of left lower extremity, s/p 4 compartment releases, open wounds I identified the patient and participated in the time-out.: Yes Procedure Operation Date: 01/26/24 08:30 Actual Procedures p Left Lower Extremity Irrigation and Debridement, Wound Closure, placement of Wound Vac(Left) - David Cannon MD Surgeon David Cannon MD Clark Driver Radha Babb DO Estimated Blood Loss 5 Findings See Below Anterior & Lateral compartments: The muscles were red, beefy, and contractile. There was minimal hematoma. Lateral wound measured 20 x 6.5 cm after partially closing the proximal and distal ends of the wound. Superficial & Deep Posterior Compartments: The muscles were red, beefy, and contractile. There was minimal hematoma. Medial wound was able to be closed without tension. Fluids 700 cc Specimens n/a Drains Wound Vac Anesthesia Type General Complications none Indications The patient is a 18 year old male who developed acute LLE compartment syndrome after sustaining a hyperextension injury and underwent 4 compartment release and open wounds. After a lengthy discussion regarding treatment options as well as the risks and benefits of both conservative versus surgical intervention, I recommended surgical intervention in order to decrease the size of his leg wounds. The patient understands the risks of surgery, which include but are not limited to: bleeding, infection, re-operation, damage to nerves and arteries, continued pain, decreased level of activity, muscle herniation, and DVT. The p atient understands all of these instructions and explanations, all of their questions have been satisfactorily addressed. The patient has elected to proceed with surgery and the informed consent was signed. Description of Procedure The patient was taken to the Operating Room and after general anesthetic was administered a multidisciplinary time-out was performed identifying my initials on the left lower limb as the correct and operative limb, the patient was placed in the supine position on the operating table. Prior to starting, 2 grams of intravenous Ancef was given. The wound vac was removed from the LLE. The left lower leg was prepped and draped in the standard sterile fashion. The previous incisions were injected with a 50:50 mixture of 1% Lidocaine plain and 0.5% Marcaine with Epinephrine for a total of 30 cc. The anterior and lateral compartments was copiously irrigated with 3L normal saline. Any hematoma was removed with curet and rongeur. The muscles were red, beefy, and contractile. The medial incision over the Superficial & Deep compartments, was copiously irrigated with 3L normal saline. Any hematoma was removed with curet and rongeur. The muscles were red, beefy, and contractile. The medial wound was closed with 0 Prolene using vertical mattress, without tension. The medial incision was covered with adaptic and black foam, creating an incisional wound vac. The lateral wound partially closed at the proximal and distal ends. Adaptic was placed over the closed portion of the incision as well as the exposed muscle. A wound vac was placed over the incision and open wound using black foam and connected to the medial incisional wound vac. The sponge and needle counts were correct. The wound vac needed re-enforcement at the distal end medially and it was then functional. Post-op Instructions: Patient was re-admitted to the med/surg floor. Plan for wound vac change and possible closure of lateral wound. WBAT, Activities as tolerated. Pain medicine. Continue Ancef. DVT prophylaxis with TEDs & Foot pumps. I attest to the content of the Intraoperative Record and any orders documented therein. Any exceptions are noted below.
[2024-01-26] MEDS: fentaNYL citrate PF 100 MCG/2 ML VIAL IV PRN (11:10)
--- NOTE | 2024-01-26 11:30 | Anesthesiology Progress Note ---
Date of Service January 26, 2024 Anesthesia Post Procedure Vital Signs Vital Signs: Temp Pulse Pulse Resp BP BP Pulse Ox 01/26/24 11:25 36.4 C L 90 18 134/69 99 01/26/24 11:15 66 12 120/62 94 01/26/24 11:05 82 12 141/73 H 96 01/26/24 10:55 98 H 16 138/70 100 01/26/24 10:47 88 14 128/70 100 01/26/24 07:50 37.1 C 78 20 133/69 97 01/26/24 07:11 36.5 C 53 L 15 111/67 99 01/25/24 22:38 37.1 C 72 16 111/68 98 01/25/24 15:01 36.4 C L 60 15 107/67 98 O2 Del Method O2 Flow Rate 01/26/24 11:25 Room Air 01/26/24 11:15 Room Air 01/26/24 11:05 Room Air 01/26/24 10:55 Room Air 01/26/24 10:47 Oxymask 6 01/26/24 07:50 Room Air 01/26/24 07:11 Room Air 01/25/24 22:38 Room Air 01/25/24 15:01 Room Air Pain Intensity Left Lower Leg: Pain Intensity: 4 Transfer of Care Handoff Completed per policy Notes Mental Status: alert / awake / arousable Patient Amnestic to Procedure: Yes Nausea / Vomiting: adequately controlled Pain: adequately controlled Airway Patency, RR, SpO2: stable & adequate BP & HR: stable & adequate Hydration State: stable & adequate Anesthetic Complications: no major complications apparent and Pt Satisfied with anesthetic care
[2024-01-26] MEDS ORDERED: ceFAZolin 1000MG 1,000 MG/7.5 ML SYR IV SCH (11:53)
--- NOTE | 2024-01-26 15:30 | Operative Report ---
Post Operative Report Pre & Post Diagnosis Operation Date: 01/26/24 08:30 Pre-Op Diagnosis: Compartment syndrome of left lower extremity Post-Op Diagnosis: Compartment syndrome of left lower extremity I identified the patient and participated in the time-out.: Yes Procedure Operation Date: 01/26/24 08:30 Actual Procedures p Left Lower Extremity Incision and Drainage, Wound Closure, placement of Wound Vac(Left) - David Cannon MD Surgeon David Cannon MD Marine Biologist Breezy Babb DO Estimated Blood Loss 5 Findings Consistent with Post-Op Diagnosis Specimens None Description of Procedure Patient was brought to the operative suite, he underwent anesthesia. Left lower extremity was prepped and draped in the usual sterile fashion. Surgical timeout performed. Patient underwent left lower extremity repeat irrigation and debridement, delayed primary wound closure, and wound vac application. See Dr. Cannon's operative report for full details. I was present and assisted with patient positioning, limb positioning, hemostasis, wound closure, VAC application. Patient was taken to recovery room in stable condition. I attest to the content of the Intraoperative Record and any orders documented therein. Any exceptions are noted below.
[2024-01-26] MEDS: ceFAZolin 1000MG 1,000 MG/7.5 ML SYR IV SCH (17:39)
--- NOTE | 2024-01-26 17:40 | Surgery Progress Note ---
Date of Service January 26, 2024 Assessment & Plan (1) Wound of left leg: Plan Discussed that is not uncommon to have some prolonged edema following fasciotomy. As one wound was able to be closed and second wound is partially closed due to significant improvement in edema over the last 72 hours, I would advise at this point in time continuing the wound VAC to help improve edema and aim for delayed primary closure. This may not be achievable in the immediate next few days, but I think would ultimately be possible and would be the best choice. Discussed he would have the shortness recovery and most aesthetic outcome. If this is achievable, would recommend use of Prevena wound VAC at the time of delayed closure. I did review split-thickness skin grafting procedure with the patient, including need for creating a new wound, continued use of wound VAC until the graft has taken, poor aesthetic outcome. If the wound cannot be closed primarily, I would recommend allowing a healthy bed of granulation tissue to form in order to optimize likelihood of graft success and improve aesthetics. Patient is aware I will be out of the office for several weeks and if grafting is necessary, he may need to be referred elsewhere to complete this process. Patient and his mother were given the opportunity to ask questions, all questions addressed. Admission and Anticipated Discharge Date Admission Date: January 23, 2024 Subjective Patient is seen today at bedside. He is postoperative day three status post left lower leg four compartment fasciotomy due to soleus rupture. He was initially treated with wound VAC. Has just returned from the operating room for further washout. Mother is present at bedside, states medial wound was able to be closed primarily, lateral wound was closed partially, about a third [address]. He is scheduled for additional washout and possible closure on the . He is a student in [employer], states he is willing to stay in the area as long as needed in order to have this heal. I am consulted regarding feasibility of primary closure versus need for skin grafting. Physical Exam Physical Exam: Wound VAC currently in place. Photos taken intraoperatively by wound care team show a 20 x 6.5 cm wound of the left lateral leg, still with significant edema but with healthy appearing tissue and early granulation Results & Data Vital Signs (Past 12 Hours) Vital Signs Temp Pulse Pulse Resp BP BP Pulse Ox 01/26/24 14:49 97.7 F 86 18 109/62 96 01/26/24 14:19 97.7 F 77 16 107/65 98 01/26/24 13:56 97.2 F L 89 18 108/71 98 01/26/24 13:01 98.4 F 60 24 97/54 L 96 01/26/24 12:19 91 H 20 109/51 L 99 01/26/24 11:54 98.6 F 96 H 18 115/68 95 01/26/24 11:40 88 14 117/56 L 97 01/26/24 11:25 97.5 F L 90 18 134/69 99 01/26/24 11:15 66 12 120/62 94 01/26/24 11:05 82 12 141/73 H 96 01/26/24 10:55 98 H 16 138/70 100 01/26/24 10:47 88 14 128/70 100 01/26/24 07:50 98.8 F 78 20 133/69 97 01/26/24 07:11 97.7 F 53 L 15 111/67 99 O2 Del Method O2 Flow Rate 01/26/24 14:49 Room Air 01/26/24 14:19 Room Air 01/26/24 13:56 Room Air 01/26/24 13:01 Room Air 01/26/24 12:19 Room Air 01/26/24 11:54 Room Air 01/26/24 11:40 Room Air 01/26/24 11:25 Room Air 01/26/24 11:15 Room Air 01/26/24 11:05 Room Air 01/26/24 10:55 Room Air 01/26/24 10:47 Oxymask 6 01/26/24 07:50 Room Air 01/26/24 07:11 Room Air PG Care Time/CCT Total # of Minutes Spent Total Time Spent with Patient: Total time spent is greater than 50% in coordination of care (as documented) at patient's floor/unit and/or counseling patient: Coding Level of Care Code 51295 SUB INP/OBS CARE 2/35MIN Diagnoses Wound of left leg S81.802A
--- NOTE | 2024-01-27 11:02 | Orthopedic Progress Note ---
Date of Service January 27, 2024 Assessment & Plan (1) Compartment syndrome of left lower extremity: Plan: The patient and his mother were educated regarding today's findings. They are reassured that I do not suspect a new compartment syndrome. He has no sign ificant discomfort or increase in discomfort when dorsiflexing his ankle. No pain with dorsiflexion of the extensor hallucis. His calf tissue is soft and supple. Peripheral pulses are good. I recommend that he ice and elevate the leg frequently to reduce any residual swelling. The plan is to take him back tomorrow and hopefully close the fasciotomy site in the OR. Continue with his wound VAC. Alfredo the office with any other concerns. Admission and Anticipated Discharge Date Admission Date: January 23, 2024 Subjective This 18-year-old male is seen today in his room. He is 1 day status post wound VAC exchange high his left calf. His mother is present. He denies any chest pain or shortness of breath. No nausea or vomiting. He is getting some increased discomfort over the anterior portion of his left is[place], which is making him nervous. He is concerned that the compartment syndrome is returning. He denies any numbness or tingling in the foot or ankle. No change in color or temperature to his foot. The pain is not severe, but he is noticing some disc omfort anteriorly. His mother states he slept throughout the night. No new trauma. Physical Exam Physical Exam: General: Well-developed, well-nourished, young male, in no acute distress. Anxious. Alert and oriented. He is focused on his left leg. Skin: Warm and dry with good turgor. No rashes. No ecchymosis or edema. Postsurgical dressing is in place on the left calf. Musculoskeletal: The patient has intact motor function of his ankle and toes as well as his knee. Flexion and extension are intact. There is somewhat limited in the toes and foot at this time Neurologic: Gross sensation is intact across each of the toes of the left foot by soft touch. Peripheral pulses are 2+ when in a dorsiflexed position. They are tougher to find when plantarflex. Results & Data Vital Signs (Past 12 Hours) Vital Signs Temp Pulse Resp BP BP Pulse Ox O2 Del Method 01/27/24 07:07 36.8 C 60 18 100/99 99 Room Air 01/27/24 03:28 37 C 66 16 98/56 L 99 Room Air
--- NOTE | 2024-01-28 11:06 | Orthopedic Progress Note ---
Date of Service January 28, 2024 Assessment & Plan (1) Compartment syndrome of left lower extremity: Plan: Plan is to take the patient back to the OR today for washout, wound closure, and possible wound VAC placement. Procedure was reviewed with patient and mother. New consent form was completed reviewed with the patient and his mother. Remain NPO. Has follow-up appointment scheduled 02/10/[address] Cannon. Other option is to follow-up in training room. Patient and mother are agreeable for it is most convenient from a follow-up standpoint. Admission and Anticipated Discharge Date Admission Date: January 23, 2024 Subjective This 18-year-old male is seen today in his room accompanied by his mother. He is day #2 status post wound VAC exchange his left calf. He reports no pain right now. Every now and then has a little bit of pain in the front of the lower leg but nothing persistent. Improved from yesterday. Has been elevating his leg. Was able to sleep quite a bit last night. Has not had anything to eat or drink this morning. No nausea or vomiting. No chest pain or shortness of breath. Denies any numbness or tingling in his toes and is able to move his toes without difficulty. Physical Exam Constitutional: Resting comfortably laying in bed with leg elevated. In no acute distress. Pleasant. Cardiovascular: Left DP pulse 1+ Musculoskeletal: Left lower extremity: Dressing is in place, clean dry and intact on the lower leg. Wound VAC tubing with positive suction. Small amount of drainage in the canister. Moves all toes. Some pain elicited in the calf with active plantarflexion and dorsiflexion. Able to perform straight leg raise and actively flex and extend at the knee. Skin: Capillary refill less than 2 seconds in left toes Neurologic: No sensory deficits in left toes to light touch. Results & Data Vital Signs (Past 12 Hours) Vital Signs Temp Pulse Resp BP Pulse Ox O2 Del Method 01/28/24 08:03 97.7 F 63 18 93/47 L 99 Room Air
[2024-01-28] MEDS ORDERED: LIDOCAINE 2% 2 ML VIAL/AMP(20MG/ML) INFIL ONE (13:25)
[2024-01-28] MEDS ORDERED: ONDANSETRON INJ 2 MG/ML 2 ML VIAL ONE (13:25)
[2024-01-28] MEDS ORDERED: DEXAMETHASONE SOD INJ 4 MG/ML VIAL ONE (13:25)
[2024-01-28] MEDS ORDERED: MIDAZOLAM HCL 1 MG/ML 2ML VIAL ONE (13:26)
[2024-01-28] MEDS ORDERED: PROPOFOL IV EMULSION 10 MG/ML 20 ML VIAL IV ONE (13:26)
[2024-01-28] MEDS ORDERED: HYDROmorphone INJ 2 MG/ML SYR/VIAL ONE (13:27)
[2024-01-28] MEDS ORDERED: DexMEDEtomidine HCL IV 100 MCG/ML VIAL IV ONE (13:27)
--- NOTE | 2024-01-28 13:50 | Anesthesiology Consultation ---
Date of Service January 28, 2024 Assessment & Plan Chart Review Chart Review: Acceptable Risk for Surgery Consults Requested none History Surgery Operation Date: 01/23/24 16:00 Proposed Procedures p Left Lower Leg Compartment Syndrome Release - David A MD Kassandra Operation Date: 01/26/24 08:30 Proposed Procedures p Left Lower Extremity Incision and Drainage, Wound Closure, Possible Wound Vac - David Frank Cannon MD Operation Date: 01/28/24 13:15 Proposed Procedures p Left Lower Extremity Incision and Drainage, Wound Closure, Possible Wound Vac - David Frank Cannon MD Height/Weight Height: 5 ft 6 in Weight: 66.9 kg Allergies Allergy/AdvReac Type Severity Reaction Status Date / Time venom-honey bee Allergy Unknown Unknown Verified 01/28/24 12:30 Medications Home Medications Medication Instructions Recorded Confirmed Last Taken Tylenol 650 mg PO Q6 PRN Pain 01/23/24 01/23/24 Unknown Active Medications Generic Name Dose Route Start Last Admin Trade Name Freq PRN Reason Stop Dose Admin Acetaminophen 1,000 mg 01/23/24 20:02 01/27/24 11:08 Acetaminophen 500 Mg Tab PO 02/22/24 20:01 1,000 mg Q8H PRN Administration Pain Ascorbic Acid 500 mg 01/24/24 08:00 01/28/24 08:59 Ascorbic Acid 500 Mg Tab PO 02/06/24 07:59 500 mg BIDM KENDRICK Administration Celecoxib 100 mg 01/24/24 09:00 01/28/24 08:59 Celecoxib 100 Mg Cap PO 02/07/24 08:59 100 mg BID KENDRICK Administration Docusate Sodium 100 mg 01/23/24 21:00 01/28/24 09:15 Docusate Sodium 100 Mg Cap PO 02/22/24 20:59 100 mg BID KENDRICK Administration Ferrous Gluconate 324 mg 01/24/24 08:00 01/28/24 08:59 Ferrous Gluconate 324 Mg Tab PO 02/06/24 07:59 324 mg BIDM KENDRICK Administration Cefazolin Sodium 1,000 mg in 7.5 mls @ 3.75 mls/min 01/26/24 17:00 01/28/24 09:15 Ancef 1000mg IV 01/28/24 16:59 3.75 mls/min Q8H KENDRICK Administration Protocol Multivitamins 1 tab 01/24/24 09:00 01/28/24 08:59 Multivitamin Tab PO 02/23/24 08:59 1 tab QAM KENDRICK Administration Sennosides 17.2 mg 01/23/24 21:00 01/27/24 21:17 Senna 8.6 Mg Tab PO 02/22/24 20:59 17.2 mg HS KENDRICK Administration Tramadol HCl 50 - 100 mg 01/23/24 19:54 01/27/24 14:20 Tramadol Hcl 50 Mg Tablet PO 02/22/24 19:53 50 mg Q4H PRN Administration Pain & Pre PT NPO Date Last Intake of Fluids: 01/27/24 Time Last Intake of Fluids: 23:00 Last Intake of Fluids Comment: AM PO meds with little sip of water Date Last Intake of Solids: 01/27/24 Time Last Intake of Solids: 23:00 Last Intake of Solids Comment: breakfast burrito, chocolate pancake Past Medical History Medical History No pertinent past medical history Past Family History Family History Other No pertinent family history No pertinent past medical history Past Surgical History Surgical History Status post open reduction and internal fixation (ORIF) of fracture Left Tibial Plateau Social History Smoking Status: Never smoker Hx Alcohol Use: No Hx Substance Use: No Physical Exam Vital Signs Last Vital Signs Temp 37.3 C 01/28/24 12:31 Pulse 77 01/28/24 12:31 Resp 18 01/28/24 12:31 BP 127/57 L 01/28/24 12:31 Pulse Ox 98 01/28/24 12:31 O2 Del Method Room Air 01/28/24 12:31 O2 Flow Rate 6 01/26/24 10:47 Testing Laboratory Results 01/24/24 06:32 01/24/24 06:32 Urine Color Yellow 01/24/24 00:44 Urine Appearance Cloudy (Clear) A 01/24/24 00:44 Urine pH 7.0 (4.5-7.5) 01/24/24 00:44 Ur Specific Bend 1.024 (1.000-1.030) 01/24/24 00:44 Urine Protein Negative (Negative) 01/24/24 00:44 Urine Glucose (UA) Negative (Negative) 01/24/24 00:44 Urine Ketones Negative (Negative) 01/24/24 00:44 Urine Nitrite Negative (Negative) 01/24/24 00:44 Ur Leukocyte Esterase Negative (Negative) 01/24/24 00:44 Urine WBC (Auto) 0-5 /hpf (0-5) 01/24/24 00:44 Urine RBC (Auto) 0-2 /hpf (0-2) 01/24/24 00:44 U Hyaline Cast (Auto) 0-2 /lpf (0-2) 01/24/24 00:44 U Epithel Cells (Auto) 0-2 /hpf (0-2) 01/24/24 00:44 Urine Bacteria (Auto) None Seen (None Seen) 01/24/24 00:44
[2024-01-28] MEDS ORDERED: ePHEDrine sulfate 50 MG/5 ML SYR ONE (14:19)
[2024-01-28] MEDS: BUPIVACAINE/EPINEPHRINE 0.25% 1:200,000 30 ML VIAL ONE (15:05)
--- NOTE | 2024-01-28 15:05 | Post Operative Brief Note ---
Immediate Post Op Note Date of Surgery January 28, 2024 Pre & Post Diagnosis Operation Date: 01/28/24 13:15 Pre-Op Diagnosis: Compartment syndrome of left lower extremity s/p 4 compartment release Post-Op Diagnosis: Compartment syndrome of left lower extremity s/p 4 compartment release I identified the patient and participated in the time-out.: Yes Procedure Operation Date: 01/28/24 13:15 Actual Procedures p Left Lower Extremity Irrigation and Debridement, Wound Closure, and Wound VAC Placement(Left) - David Cannon MD Surgeon David Cannon MD Relations Specialist Orlin Gan PA-C (No fellow avail) Estimated Blood Loss 10 Findings Consistent with Post-Op Diagnosis Fluids 500 cc Drains Other (Prevena Wound Vac x 2) Anesthesia Type General
[2024-01-28] MEDS: LIDOCAINE 1% LOCAL 20 ML VIAL ONE (15:06)
--- NOTE | 2024-01-28 15:08 | Operative Report ---
Post Operative Report Pre & Post Diagnosis Operation Date: 01/28/24 13:15 Pre-Op Diagnosis: H/O Acute Compartment syndrome of left lower extremity, s/p 4 compartment release Post-Op Diagnosis: H/O Acute Compartment syndrome of left lower extremity, s/p 4 compartment re lease I identified the patient and participated in the time-out.: Yes Procedure Operation Date: 01/28/24 13:15 Actual Procedures p Left Lower Extremity Irrigation and Debridement, Wound Closure, and Wound VAC Placement(Left) - David Cannon MD Surgeon David Cannon MD Long Term Acute Care Registered Nurse Orlin Gan PA-C (No fellow avail) Estimated Blood Loss 10 Findings See Below Medial wound looked good. Lateral wound, red beefy and contractile muscle, no evidence of infection Fluids 500 cc Specimens n/a Drains Prevena Wound Vac x 2 Anesthesia Type General Complications none Indications The patient is a 18 year old male who developed acute LLE compartment syndrome after sustaining a hyperextension injury and underwent 4 compartment release and open wounds. The medial wound was able to be closed last OR visit. After a lengthy discussion regarding treatment options as well as the risks and benefits of both conservative versus surgical intervention, I recommended surgical intervention in order to decrease the size of his leg wounds. The patient understands the risks of surgery, which include but are not limited to: bleeding, infection, re-operation, damage to nerves and arteries, continued pain, decreased level of activity, muscle herniation, and DVT. The patient understands all of these instructions and explanations, all of their questions have been satisfactorily addressed. The patient has elected to proceed with surgery and the informed consent was signed. Description of Procedure The patient was taken to the Operating Room and after general anesthetic was administered a multidisciplinary time-out was performed identifying my initials on the left lower limb as the correct and operative limb, the patient was placed in the supine position on the operating table. The patient has been on a regime of 2 grams of intravenous Ancef every 8 hours. The wound vac was removed from the LLE. The left lower leg was prepped and draped in the standard sterile fashion. The previous lateral incision was injected with a 50:50 mixture of 1% Lidocaine plain and 0.5% Marcaine with Epinephrine for a total of 20 cc. The anterior and lateral compartments were copiously irrigated with 3L normal saline. The muscles were red, beefy, and contractile. The lateral wound was able to be full closed without tension using 0 Prolene. Prevena wound vac was placed over the medial and lateral incisions. The sponge and needle counts were correct. The Wound Vacs were functional. Post-op Instructions: Patient was re-admitted to the med/surg floor. WBAT, Activities as tolerated. Pain medicine. Continue Ancef. DVT prophylaxis with TEDs & Foot pumps. I attest to the content of the Intraoperative Record and any orders documented therein. Any exceptions are noted below.
--- NOTE | 2024-01-28 15:17 | Operative Report ---
Post Operative Report Pre & Post Diagnosis Operation Date: 01/28/24 13:15 Pre-Op Diagnosis: Compartment syndrome of left lower extremity Post-Op Diagnosis: Compartment syndrome of left lower extremity I identified the patient and participated in the time-out.: Yes Procedure Operation Date: 01/28/24 13:15 Actual Procedures p Left Lower Extremity Incision and Drainage, Wound Closure, and Wound VAC Placement(Left) - David Cannon MD Surgeon David Cannon MD Claims Processor Orlin Gan PA-C (No fellow avail) Estimated Blood Loss 10 Findings Consistent with Post-Op Diagnosis Specimens None Anesthesia Type General Regional Description of Procedure Patient was taken to the operating room and placed under general anesthesia. IV antibiotics were not given to the patient because he recently had his regularly scheduled dose of Ancef. Local was injected around the incision area. I was present during the entire case. Please see Dr. Cannon's operative report for further details regarding today's procedure. Patient was awakened and transferred to the recovery room in stable condition. I attest to the content of the Intraoperative Record and any orders documented therein. Any exceptions are noted below.
--- NOTE | 2024-01-28 16:26 | Anesthesiology Progress Note ---
Date of Service January 28, 2024 Anesthesia Post Procedure Vital Signs Vital Signs: Temp Pulse Pulse Resp BP BP Pulse Ox 01/28/24 16:13 37.5 C 92 H 16 117/71 98 01/28/24 15:55 90 15 122/65 95 01/28/24 15:45 36.4 C L 94 H 14 119/63 95 01/28/24 15:35 92 H 13 133/71 97 01/28/24 15:25 93 H 15 133/68 100 01/28/24 15:16 36.4 C L 107 H 13 139/79 100 01/28/24 12:31 37.3 C 77 18 127/57 L 98 01/28/24 08:03 36.5 C 63 18 93/47 L 99 01/27/24 19:08 36.3 C L 68 16 107/64 98 O2 Del Method O2 Flow Rate 01/28/24 16:13 Room Air 01/28/24 15:55 Room Air 0 01/28/24 15:45 Room Air 0 01/28/24 15:35 Room Air 0 01/28/24 15:25 Oxymask 4 01/28/24 15:16 Oxymask 8 01/28/24 12:31 Room Air 01/28/24 08:03 Room Air 01/27/24 19:08 Room Air Pain Intensity Left Lower Leg: Pain Intensity: 2 Transfer of Care Handoff Completed per policy Notes Mental Status: alert / awake / arousable and participated in evaluation Patient Amnestic to Procedure: Yes Nausea / Vomiting: adequately controlled Pain: adequately controlled Airway Patency, RR, SpO2: stable & adequate BP & HR: stable & adequate Hydration State: stable & adequate Anesthetic Complications: no major complications apparent
--- NOTE | 2024-01-28 22:43 | Orthopedic Progress Note ---
Date of Service January 28, 2024 Assessment & Plan (1) Compartment syndrome of left lower extremity: Plan: POD 0 s/p LLE I&D, wound closure, Wound Vac placement, doing well WBAT Continue pain control Resume diet Continue Abx & DVT prophylaxis. Acute anemia blood due to injury/surgery, stable. Will start FE & Vit C for 2 weeks. Has follow-up appointment scheduled 02/10/[address] Cannon. Other option is to follow-up in training room. Patient and mother are agreeable for it is most convenient from a follow-up standpoint. Admission and Anticipated Discharge Date Admission Date: January 23, 2024 Subjective Doing well, feels like he has improved foot and ankle motion. Physical Exam Physical Exam: He is able to wiggle his toes and pump his ankle. Sensation intact distally to light touch. BCR < 2 sec. Wound vac was in place and functioning. Results & Data Vital Signs (Past 12 Hours) Vital Signs Temp Pulse Pulse Resp BP BP Pulse Ox 01/28/24 19:19 36.2 C L 63 18 117/66 99 01/28/24 18:03 36.2 C L 79 20 109/64 98 01/28/24 17:22 36.8 C 94 H 20 106/62 96 01/28/24 16:40 36.6 C 85 18 118/69 95 01/28/24 16:13 37.5 C 92 H 16 117/71 98 01/28/24 15:55 90 15 122/65 95 01/28/24 15:45 36.4 C L 94 H 14 119/63 95 01/28/24 15:35 92 H 13 133/71 97 01/28/24 15:25 93 H 15 133/68 100 01/28/24 15:16 36.4 C L 107 H 13 139/79 100 01/28/24 12:31 37.3 C 77 18 127/57 L 98 O2 Del Method O2 Flow Rate 01/28/24 19:19 Room Air 01/28/24 18:03 Room Air 01/28/24 17:22 Room Air 01/28/24 16:40 Room Air 01/28/24 16:13 Room Air 01/28/24 15:55 Room Air 0 01/28/24 15:45 Room Air 0 01/28/24 15:35 Room Air 0 01/28/24 15:25 Oxymask 4 01/28/24 15:16 Oxymask 8 01/28/24 12:31 Room Air Laboratory Results Laboratory Results WBC 11.66 K/ul (4.8-10.8) H 01/24/24 06:32 RBC 3.56 M/uL (4.70-6.10) L 01/24/24 06:32 Hgb 10.8 g/dl (14.0-18.0) L D 01/24/24 06:32 Hct 31.7 % (42.0-52.0) L 01/24/24 06:32 MCV 89.0 fL (80.0-100.0) 01/24/24 06:32 MCH 30.3 pg (25.0-34.0) 01/24/24 06:32 MCHC 34.1 g/dL (32.0-36.0) 01/24/24 06:32 RDW Std Deviation 41.9 fL (36.4-46.3) 01/24/24 06:32 RDW Coeff of Mercedes 12.9 % (11.5-14.5) 01/24/24 06:32 Plt Count 221 K/uL (130-400) 01/24/24 06:32 MPV 9.9 fL (9.4-12.4) 01/24/24 06:32 Immature Gran % (Auto) 0.3 % 01/23/24 16:40 Neut % (Auto) 65.4 % 01/23/24 16:40 Lymph % (Auto) 17.0 % 01/23/24 16:40 [place] % (Auto) 13.3 % 01/23/24 16:40 Eos % (Auto) 3.4 % 01/23/24 16:40 Baso % (Auto) 0.6 % 01/23/24 16:40 Neut # (Auto) 6.97 K/uL (1.40-6.50) H 01/23/24 16:40 Lymph # (Auto) 1.81 K/uL (1.20-3.40) 01/23/24 16:40 [place] # (Auto) 1.41 K/uL (0.11-0.59) H 01/23/24 16:40 Eos # (Auto) 0.36 K/uL (0.00-0.50) 01/23/24 16:40 Baso # (Auto) 0.06 K/uL (0.00-0.20) 01/23/24 16:40 Immature Gran # (Auto) 0.03 K/uL (0.01-0.20) 01/23/24 16:40 Sodium 138 mmol/L (136-145) 01/24/24 06:32 Potassium 4.1 mmol/L (3.5-5.1) 01/24/24 06:32 Chloride 105 mmol/L (98-107) 01/24/24 06:32 Carbon Dioxide 28 mmol/L (21-32) 01/24/24 06:32 Anion Gap 5 (3-11) 01/24/24 06:32 BUN 13 mg/dl (6-23) 01/24/24 06:32 Creatinine 0.82 mg/dl (0.6-1.4) 01/24/24 06:32 Est Cr Clr Drug Dosing 130.8 ml/min 01/24/24 06:32 eGFR 129.77 01/24/24 06:32 BUN/Creatinine Ratio 15.9 (10-20) 01/24/24 06:32 Glucose 120 mg/dl (70-99(Fasting)) H 01/24/24 06:32 Calcium 8.7 mg/dl (8.6-10.3) 01/24/24 06:32 Total Bilirubin 1.0 mg/dl (0.2-1.0) 01/23/24 16:40 AST 21 U/L (13-39) 01/23/24 16:40 ALT 19 U/L (7-52) 01/23/24 16:40 Alkaline Phosphatase 111 U/L (34-104) H 01/23/24 16:40 Total Creatine Kinase 230 U/L (30-223) H 01/23/24 16:40 Myoglobin 24 ng/mL (28-72) L 01/23/24 16:40 Total Protein 8.0 gm/dl (6.0-8.3) 01/23/24 16:40 Albumin 4.9 gm/dl (3.4-5.0) 01/23/24 16:40 Globulin 3.1 gm/dl (2.5-4.0) 01/23/24 16:40 Albumin/Globulin Ratio 1.6 (0.9-2) 01/23/24 16:40 Urine Color Yellow 01/24/24 00:44 Urine Appearance Cloudy (Clear) A 01/24/24 00:44 Urine pH 7.0 (4.5-7.5) 01/24/24 00:44 Ur Specific [place] 1.024 (1.000-1.030) 01/24/24 00:44 Urine Protein Negative (Negative) 01/24/24 00:44 Urine Glucose (UA) Negative (Negative) 01/24/24 00:44 Urine Ketones Negative (Negative) 01/24/24 00:44 Urine Blood Negative (Negative) 01/24/24 00:44 Urine Nitrite Negative (Negative) 01/24/24 00:44 Urine Bilirubin Negative (Negative) 01/24/24 00:44 Urine Urobilinogen Negative (Negative) 01/24/24 00:44 Ur Leukocyte Esterase Negative (Negative) 01/24/24 00:44 Urine WBC (Auto) 0-5 /hpf (0-5) 01/24/24 00:44 Urine RBC (Auto) 0-2 /hpf (0-2) 01/24/24 00:44 U Hyaline Cast (Auto) 0-2 /lpf (0-2) 01/24/24 00:44 U Epithel Cells (Auto) 0-2 /hpf (0-2) 01/24/24 00:44 Urine Bacteria (Auto) None Seen (None Seen) 01/24/24 00:44 Impressions Duplex Scan Lower Extremity Artery 01/23/24 15:18 EXAM: US arterial duplex LE LT 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 Severe swelling, possible compartment syndrome. TECHNIQUE: Ultrasound examination of the left lower extremities arteries with ankle brachial indices was performed in real-time and duplex. One or more of the following were performed- spectral analysis, resistive index, waveform analysis, and pulsed Doppler. COMPARISON: None. FINDINGS: Vessel Flow Pattern Left Peak Velocity Left (cm/sec) Common Femoral Artery (WALL CLEANER) Tri 123.64/11.5 cm/sec. Deep Femoral Artery (DPA) Bi 108/13.7 cm/sec. Superficial Femoral Artery (SFA) Bi SFA proximal 154/17 cm/sec. biphasic SFA mid 163/20 cm/sec. biphasic SFA distal 163.5/22.3 cm/sec. biphasic Popliteal Artery (POP A) Bi proximal 149.8/17 cm/cycle. Biphasic mid 154.2/7.1 cm/sec. biphasic distal 202/35.5 cm/sec. biphasic Posterior Tibial Artery (PATHOLOGY TECHNOLOGIST Bi proximal 102/4 cm/sec. biphasic mid 129.5/7.6 cm/sec. biphasic Distal 50.7/0.0 cm/sec. biphasic Anterior Tibial Artery (JEANMARIE), Bi proximal 69.6/0.0. Biphasic mid 51.7/9.6 biphasic distal 52/0.0 cm/sec. biphasic Dorsalis Pedis Artery (DPA) Bi 21.6/0.0 Peroneal Artery Bi proximal 70.8/0.0 biphasic mid 58.6/7.3 biphasic distal 72.8/4 biphasic The medial aspect of the calf muscle related to the possible medial head of the gastrocnemius muscle shows an intramuscular echogenic area surrounded with edema that could be traced to around the PATHOLOGY TECHNOLOGIST; it may represent intramuscular hematoma. There is increased velocity at the distal popliteal artery/ proximal tibial artery that may indicate possible significant stenosis. Although there is no intraluminal filling defect, atheromatous plaque or intimal thickening. Collateral Circulation: No significant collateral circulation was noted indicative of chronic arterial occlusion. IMPRESSION: Duplex ultrasound of the left lower extremity arteries: 1. The left lower leg examined arteries starting from the superficial femoral artery down to the peroneal artery show biphasic waveform. 2. Spiking and peaking at the distal popliteal artery /the proximal posterior tibial artery indicating extraluminal stenosis, the possibility of compartmental syndrome should be considered. Clinical correlation and further evaluation with MRI are suggested. 3. Possible intramuscular hematoma and edema in the proximal part of the medial aspect of the calf muscle. 4. No arterial occlusion with biphasic flow at the DPA. [facility]'s ER was called at [phone] at 04:46 PM FLEET SALESPERSON, and Crystal, the Nurse was informed regarding the presence of Significant Medical Findings in the report. Electronically signed by Lopez Yuan 01-23-2024 5:50 PM Venous Doppler Study 01/23/24 15:18 EXAMINATION: Left lower extremity ultrasound lower CLINICAL HISTORY: Left lower extremity swelling after injury, possible compartment syndrome PRIORS: None TECHNIQUE: Ultrasound interrogation of the left lower extremity deep venous structures was performed with grayscale, color Doppler, compression and augmentation. FINDINGS: The left common femoral, superficial femoral, greater saphenous, popliteal and tibial veins demonstrate normal compressibility, frequency and augmentation. IMPRESSION: No sonographic evidence of deep venous thrombosis in the left lower extremity. Electronically signed by Chayito Lizarraga 01-23-2024 4:42 PM
[2024-01-29 07:22] VITALS: BP 95/53; PULSE 64; RESP 16; TEMP 98.1; O2SAT 100
--- NOTE | 2024-01-29 08:11 | Orthopedic Progress Note ---
Date of Service January 29, 2024 Assessment & Plan (1) Compartment syndrome of left lower extremity: Plan: POD 1 s/p LLE I&D, wound closure, Prevena Wound Vac placement, doing well WBAT Continue pain control Regular diet Continue Abx & DVT prophylaxis. Acute anemia blood due to injury/surgery, stable. FE & Vit C for 2 weeks. Follow-up in 1 week for Prevena removal and wound check, also has appointment scheduled 02/10/[address] Cannon for possible suture removal. Other option is to follow-up in training room. Patient and mother are agreeable for it is most convenient from a follow-up standpoint. Plan d/c home later today. Admission and Anticipated Discharge Date Admission Date: January 23, 2024 Subjective Doing well, feels like he has improved foot and ankle motion. Physical Exam Physical Exam: He is able to wiggle his toes and pump his ankle. Sensation intact distally to light touch. BCR < 2 sec. Wound vac was in place and functioning. Results & Data Vital Signs (Past 12 Hours) Vital Signs Temp Pulse Resp BP BP Pulse Ox O2 Del Method 01/29/24 07:21 36.7 C 64 16 95/53 L 100 Room Air 01/29/24 03:12 36.9 C 85 18 107/66 98 Room Air 01/28/24 23:15 36.2 C L 87 18 101/57 L 98 Room Air
--- NOTE | 2024-02-01 12:39 | Discharge Summary ---
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 He had swelling posteriorly immediately after. An ultrasound in the gym revealed a Soleus tear. Today he saw his ATC and had increased swelling and intermittent decreased sensation. Discharge Data Consultations 01/23/24 16:09 ED Decision to Admit Stat 01/24/24 12:10 Consult Plastic Surgery Routine Procedures Performed Operation Date: 01/28/24 13:15 Actual Procedures p Left Lower Extremity Incision and Drainage, Wound Closure, and Wound VAC Placement(Left) - David Cannon MD
== END 2024-01-29 10:26 | disposition home or self-care (01) | DRG 908 ==
LOC: ED 14:50 → 3E 16:50 → OR 16:50 → 3E 19:54